=== PATIENT | female | born 1945 | race American Indian/Alaskan Native ===

== ENCOUNTER → 2017-11-17 | Outpatient (CLI) | payer MEDICARE ==
[~2017-11-17] MED LIST: ALBIPROI; ALBU90OI; ALBU90OI INH; AMLODIPINE BES PO; ASPI81EC; ATOR10; ATOR40TA; ATOR40TA PO; BENA PO; BUPR150ER; Bisoprolol Fuma10 MG PO; Budeprion Xl300 MG; CALC.25 PO; CARV3.125; CODACE30 PO; CONEST.625; CONEST.9 PO; CONEST1.25; CVS OMEGA-3 KR1 EACH PO; CYCL10; Cinnamon500 MG; DHEA PO; FOLI1; FOLI400 PO; FURO40; FURO40 PO; FURO80; GLIM2; HYDMOR2 PO; INSLI100I; LEVO-T25 MCG PO; MAGOXI400; METO25ER; METO50ER; NAPR250; POTA8 PO; PRED20 PO; PREDNISONE; PROAIR RESPICL90 MCG IH; SELENIUM200 MCG PO; SITA50T2 PO; SPIR25; SULTRIDS PO; Senna Laxative8.6 MG PO; TOLT4 PO; TRAM50; TRAM50 PO; VIT C; Verotin-Gr Cap1 EACH PO; Vitamin C500 M3 PO; [UNRECOGNIZED DRUG - OTHER]
== END | disposition home or self-care (01) ==
LOC: LAB SHORT 16:05 → LAB EV 16:05
DX: G89.4 Chronic pain syndrome (principal); Z79.899 Other long term (current) drug therapy
CPT/HCPCS: G0480

== ENCOUNTER → 2018-05-30 | Outpatient (CLI) | payer MEDICARE ==
[~2018-05-30] MED LIST changes: -AMLODIPINE BES PO; -ATOR40TA PO; -BENA PO; -Bisoprolol Fuma10 MG PO; -Budeprion Xl300 MG; -CALC.25 PO; -CONEST.9 PO; -CVS OMEGA-3 KR1 EACH PO; -Cinnamon500 MG; -DHEA PO; -FOLI400 PO; -LEVO-T25 MCG PO; -PROAIR RESPICL90 MCG IH; -SELENIUM200 MCG PO; -SITA50T2 PO; -Senna Laxative8.6 MG PO; -TOLT4 PO; -TRAM50 PO; -Verotin-Gr Cap1 EACH PO; -Vitamin C500 M3 PO; -[UNRECOGNIZED DRUG - OTHER]
[2018-06-02 08:38] LABS: Stool Occult Bld Immuno 1 Negative (NEGATIVE)
== END ==
LOC: LAB 11:00 → LAB SHORT 11:00
PROVIDERS: Nurse Practitioner Acute Care
DX: I48.91 Unspecified atrial fibrillation (principal); R19.5 Other fecal abnormalities
CPT/HCPCS: 82274

== ENCOUNTER → 2021-06-08 | Outpatient (CLI) | payer MEDICARE ==
[~2021-06-08] MED LIST changes: +ALBU90OI61 INH; +AMLODIPINE BES PO; +ATOR40TA PO; +Azor 10-20 MG1 EACH PO; +BENA PO; +Bisoprolol Fuma10 MG PO; +Budeprion Xl300 MG; +CALC.25 PO; +CHOL10002 PO; +CONEST.9 PO; +CVS OMEGA-3 KR1 EACH PO; +Cinnamon500 MG; +DHEA PO; +ELIQUIS5 MG PO; +FOLI400 PO; +LEVO-T25 MCG PO; +PROAIR RESPICL90 MCG IH; +SELENIUM200 MCG PO; +SITA50T2 PO; +Senna Laxative8.6 MG PO; +TOLT4 PO; +TRAM50 PO; +Verotin-Gr Cap1 EACH PO; +Vitamin C500 M3 PO; +[UNRECOGNIZED DRUG - OTHER]
[2021-06-08 16:10] LABS: BASOPHILS ABSOLUTE AUTO 0.01 K/mm3 (0.00-0.23); BASOPHILS PERCENT AUTO 0 % (0-2); EOSINOPHILS ABSOLUTE AUTO 0.02 K/mm3 (0.00-0.68); EOSINOPHILS PERCENT AUTO 0 % (0-6); Hematocrit 40.1 % (33.0-51.0); Hemoglobin 12.7 g/dL (11.5-16.0); IMMATURE GRAN ABSOLUTE AUTO 0.08 K/mm3 (0.00-0.10); IMMATURE GRAN PERCENT AUTO 1 % (0-1); LYMPHOCYTES PERCENT AUTO 15 % (21-46); MONOCYTES ABSOLUTE AUTO 0.41 K/mm3 (0.16-1.47); MONOCYTES PERCENT AUTO 5 % (4-13); Mean Corpuscular HGB 27.3 pg (26.0-34.0); Mean Corpuscular HGB Conc 31.7 g/dL (31.5-36.5); Mean Corpuscular Volume 86 fL (80-100); Mean Platelet Volume 11.6 fL (9.1-12.4); NEUTROPHILS ABSOLUTE AUTO 6.23 K/mm3 (1.96-9.15); NEUTROPHILS PERCENT AUTO 78 % (41-73); Platelet Count 274 K/mm3 (150-400); RDW Coefficient Variation 16.1 % (11.7-14.2); RDW Standard Deviation 50.6 fL (35.1-46.3); Red Blood Cell Count 4.65 M/mm3 (3.80-5.20); White Blood Cell Count 7.95 K/mm3 (4.00-11.30)
[2021-06-08 16:27] LABS: Albumin, Blood 2.5 g/dL (3.4-5.0); Albumin/Globulin Ratio 0.5 (0.8-1.8); Bun/Creatinine Ratio 23.8 (12.0-20.0); Calcium, Blood 8.6 mg/dL (8.5-10.1); Creatinine, Blood 1.43 mg/dL (0.40-1.00); Globulin, Blood 5.2 g/dL (2.2-4.0); Potassium, Blood 3.6 mmol/L (3.5-5.5); Thyroid Stimulating Hormone 2.134 uIU/mL (0.360-4.800); Total Protein, Blood 7.7 g/dL (6.4-8.2)
== END | disposition home or self-care (01) ==
LOC: LAB SHORT 16:03
PROVIDERS: Physician Assistant
DX: M62.81 Muscle weakness (generalized) (principal); N39.0 Urinary tract infection, site not specified
CPT/HCPCS: 80053; 84443; 85025; 87077; 87086; 87186

== ENCOUNTER 2024-03-01 20:45 | Emergency (ER) | payer MEDICARE ==
[~2024-03-01] VITALS: Ht 157.5 cm; Wt 90.7 kg
[2024-03-01 21:12] LABS: BASOPHILS ABSOLUTE AUTO 0.06 K/mm3 (0.00-0.23); BASOPHILS PERCENT AUTO 1 % (0-2); EOSINOPHILS ABSOLUTE AUTO 0.18 K/mm3 (0.00-0.68); EOSINOPHILS PERCENT AUTO 1 % (0-6); IMMATURE GRAN ABSOLUTE AUTO 0.13 K/mm3 (0.00-0.10); IMMATURE GRAN PERCENT AUTO 1 % (0-1); LYMPHOCYTES ABSOLUTE AUTO 1.57 K/mm3 (0.84-5.20); LYMPHOCYTES PERCENT AUTO 12 % (21-46); MONOCYTES ABSOLUTE AUTO 0.97 K/mm3 (0.16-1.47); MONOCYTES PERCENT AUTO 7 % (4-13); Mean Corpuscular HGB 29.7 pg (26.0-34.0); Mean Corpuscular HGB Conc 29.4 g/dL (31.5-36.5); Mean Corpuscular Volume 101 fL (80-100); Mean Platelet Volume 12.5 fL (9.1-12.4); NEUTROPHILS ABSOLUTE AUTO 10.21 K/mm3 (1.96-9.15); NEUTROPHILS PERCENT AUTO 78 % (41-73); NRBC ABSOLUTE 0.09 K/mm3 (0.00-0.02); NRBC Auto 0.7 /100 WBC (0.0-0.2); Platelet Count 229 K/mm3 (150-400); RDW Coefficient Variation 17.1 % (11.7-14.2); RDW Standard Deviation 61.3 fL (35.1-46.3); Red Blood Cell Count 1.75 M/mm3 (3.80-5.20); White Blood Cell Count 13.12 K/mm3 (4.00-11.30)
[2024-03-01] MEDS ORDERED: TRELEGY ELLIPT1 EACH IH (21:12)
[2024-03-01] MEDS ORDERED: CATAPRES0.1 MG PO (21:13)
[2024-03-01] MEDS ORDERED: SOAANZ40 M1 PO (21:13)
[2024-03-01 21:14] LABS: Hemoglobin 5.2 g/dL (11.5-16.0)
[2024-03-01] MEDS ORDERED: ATOR40TA PO (21:14)
[2024-03-01] MEDS ORDERED: HYDR100 PO (21:14)
[2024-03-01 21:15] LABS: Hematocrit 17.7 % (33.0-51.0)
[2024-03-01 21:27] LABS: Albumin, Blood 3.1 g/dL (3.4-5.0); Bilirubin, Total 0.4 mg/dL (0.1-1.0); Bun/Creatinine Ratio 37.6 (12.0-20.0); Calcium, Blood 8.9 mg/dL (8.5-10.1); Creatinine, Blood 1.33 mg/dL (0.40-1.00); Globulin, Blood 3.2 g/dL (2.2-4.0); Potassium, Blood 3.9 mmol/L (3.5-5.5); Total Protein, Blood 6.3 g/dL (6.4-8.2)
[2024-03-01] MEDS ORDERED: Pantoprazole Sodium 40 MG Injection IV ONE (21:40)
[2024-03-01 23:12] LABS: International Normalized Ratio 1.17; Prothrombin Time Results 12.4 Sec (9.7-11.5)
[2024-03-01 23:15] VITALS: BP 71/58
[2024-03-01] MEDS ORDERED: NS 1,000 ML IV ONE (23:32)
== END 2024-03-01 23:45 | disposition short-term general hospital (02) ==
LOC: ER 20:45
PROVIDERS: Emergency Medicine
DX: K92.2 Gastrointestinal hemorrhage, unspecified (principal); R57.8 Other shock; D50.0 Iron deficiency anemia secondary to blood loss (chronic); J44.9 Chronic obstructive pulmonary disease, unspecified; Z99.81 Dependence on supplemental oxygen; Z88.5 Allergy status to narcotic agent; Z91.048 Other nonmedicinal substance allergy status; Z79.899 Other long term (current) drug therapy; Z79.890 Hormone replacement therapy; Z79.01 Long term (current) use of anticoagulants; Z95.1 Presence of aortocoronary bypass graft
CPT/HCPCS: 36430; 71045; 80053; 85025; 85610; 85730; 86850; 86900; 86901; 86923; 93005; 93010; 96374; 99285-25; C9113; J7030; P9016

== ENCOUNTER 2024-11-12 17:01 | Inpatient (IN) | payer MEDICARE ==
[~2024-11-12] VITALS: Ht 149.9 cm; Wt 81.2 kg
[~2024-11-12 17:01] MED LIST changes: +CATAPRES0.1 MG PO; +HYDR100 PO; -LEVO-T25 MCG PO; +LEVSOD25 PO; +SOAANZ40 M1 PO; +TRELEGY ELLIPT1 EACH IH
[2024-11-12 17:30] LABS: Source, Urine Straight Cath
[2024-11-12 17:36] LABS: BASOPHILS ABSOLUTE AUTO 0.06 K/mm3 (0.00-0.23); BASOPHILS PERCENT AUTO 0 % (0-2); EOSINOPHILS ABSOLUTE AUTO 0.03 K/mm3 (0.00-0.68); EOSINOPHILS PERCENT AUTO 0 % (0-6); Hematocrit 36.1 % (33.0-51.0); Hemoglobin 11.1 g/dL (11.5-16.0); IMMATURE GRAN ABSOLUTE AUTO 0.19 K/mm3 (0.00-0.10); IMMATURE GRAN PERCENT AUTO 1 % (0-1); LYMPHOCYTES ABSOLUTE AUTO 1.33 K/mm3 (0.84-5.20); LYMPHOCYTES PERCENT AUTO 6 % (21-46); MONOCYTES ABSOLUTE AUTO 1.16 K/mm3 (0.16-1.47); MONOCYTES PERCENT AUTO 5 % (4-13); Mean Corpuscular HGB 24.6 pg (26.0-34.0); Mean Corpuscular HGB Conc 30.7 g/dL (31.5-36.5); Mean Corpuscular Volume 80 fL (80-100); NEUTROPHILS ABSOLUTE AUTO 21.26 K/mm3 (1.96-9.15); NEUTROPHILS PERCENT AUTO 89 % (41-73); Platelet Count 160 K/mm3 (150-400); RDW Coefficient Variation 17.1 % (11.7-14.2); RDW Standard Deviation 48.9 fL (35.1-46.3); Red Blood Cell Count 4.52 M/mm3 (3.80-5.20); White Blood Cell Count 24.03 K/mm3 (4.00-11.30)
[2024-11-12 17:37] LABS: Appearance, Urine Cloudy (Clear); Bilirubin, Urine Neg (Neg); Blood, Urine 5+ (Neg); Color, Urine Yellow (P-Yellow); Glucose Qualitative, Urine Neg (Neg); Ketones, Urine 1+ (Neg); Leukocyte Esterase, Urine 3+ (Neg); Nitrite, Urine Neg (Neg); Protein, Urine 3+ (Neg); Urobilinogen, Urine NORM (Normal)
[2024-11-12] MEDS ORDERED: Albuterol 2.5 MG/3 ML VIAL INH ONE (17:40)
[2024-11-12] MEDS ORDERED: Ketorolac Tromethamine 15mg Vial IV ONE (17:40)
[2024-11-12 17:46] LABS: Albumin, Blood 3.3 g/dL (3.4-5.0); Albumin/Globulin Ratio 0.8 (0.8-1.8); Bilirubin, Total 1.1 mg/dL (0.1-1.0); Bun/Creatinine Ratio 20.6 (12.0-20.0); Calcium, Blood 9.1 mg/dL (8.5-10.1); Creatinine, Blood 1.94 mg/dL (0.40-1.00); Globulin, Blood 4.1 g/dL (2.2-4.0); Potassium, Blood 4.3 mmol/L (3.5-5.5); Total Protein, Blood 7.4 g/dL (6.4-8.2)
[2024-11-12] MEDS ORDERED: NS 1,000 ML IV ONE (18:02)
[2024-11-12] MEDS ORDERED: NS 1,000 ML IV SCH (18:05)
[2024-11-12 18:10] LABS: Influenza A, PCR NEGATIVE (NEGATIVE); Influenza B, PCR NEGATIVE (NEGATIVE); Resp Syncytial Virus, PCR NEGATIVE (NEGATIVE); SARS-Cov-2 (COVID-19) PCR, MMC NEGATIVE (NEGATIVE)
[2024-11-12] MEDS ORDERED: Acetaminophen 325 MG TABLET PO ONE (18:15)
[2024-11-12 18:25] LABS: Bacteria Many /hpf; Mucus Light (0-Heavy); Red Blood Cells, Urine TNTC /hpf (0-2); Squamous Epithelial Cells Few /hpf (Few); Transitional Epithelial Cells Rare /hpf (0-Rare); White Blood Cells, Urine TNTC /hpf (0-5)
[2024-11-12] MEDS ORDERED: Azithromycin 250 MG Tab PO ONE (18:30)
[2024-11-12] MEDS ORDERED: CefTRIAXone Sodium 1,000 MG in NS 100 ML IV ONE (18:30)
[2024-11-12] MEDS ORDERED: Ipratropium/Albuterol SulF 2.5-0.5MG/3 ML Amp INH PRN (19:30)
[2024-11-12] MEDS ORDERED: FLU VACC TS2024-25(6MOS UP)/PF 45 MCG/0.5 ML SYRINGE IM SCH (19:30)
[2024-11-12] MEDS ORDERED: Ondansetron HCl 2 MG / ML 2ML Vial IV PRN (19:30)
[2024-11-12] MEDS ORDERED: MethylPREDNISolone Sod Succ 125 MG Vial IV SCH (20:00)
[2024-11-12] MEDS ORDERED: Heparin Sodium 5000 Units/ML 1ML MDV SC SCH (21:00)
[2024-11-13 06:13] LABS: BASOPHILS ABSOLUTE AUTO 0.07 K/mm3 (0.00-0.23); BASOPHILS PERCENT AUTO 0 % (0-2); EOSINOPHILS PERCENT AUTO 0 % (0-6); Hematocrit 34.4 % (33.0-51.0); Hemoglobin 10.7 g/dL (11.5-16.0); IMMATURE GRAN ABSOLUTE AUTO 0.13 K/mm3 (0.00-0.10); IMMATURE GRAN PERCENT AUTO 1 % (0-1); LYMPHOCYTES ABSOLUTE AUTO 0.56 K/mm3 (0.84-5.20); LYMPHOCYTES PERCENT AUTO 2 % (21-46); MONOCYTES ABSOLUTE AUTO 0.59 K/mm3 (0.16-1.47); MONOCYTES PERCENT AUTO 2 % (4-13); Mean Corpuscular HGB 24.8 pg (26.0-34.0); Mean Corpuscular HGB Conc 31.1 g/dL (31.5-36.5); Mean Corpuscular Volume 80 fL (80-100); Mean Platelet Volume 12.1 fL (9.1-12.4); NEUTROPHILS ABSOLUTE AUTO 23.17 K/mm3 (1.96-9.15); NEUTROPHILS PERCENT AUTO 95 % (41-73); Platelet Count 137 K/mm3 (150-400); RDW Coefficient Variation 16.9 % (11.7-14.2); RDW Standard Deviation 49.1 fL (35.1-46.3); Red Blood Cell Count 4.32 M/mm3 (3.80-5.20); White Blood Cell Count 24.52 K/mm3 (4.00-11.30)
[2024-11-13 06:28] LABS: Albumin, Blood 2.8 g/dL (3.4-5.0); Albumin/Globulin Ratio 0.7 (0.8-1.8); Bilirubin, Total 0.6 mg/dL (0.1-1.0); Bun/Creatinine Ratio 24.6 (12.0-20.0); Calcium, Blood 8.4 mg/dL (8.5-10.1); Creatinine, Blood 1.79 mg/dL (0.40-1.00); Globulin, Blood 4.2 g/dL (2.2-4.0); Potassium, Blood 4.1 mmol/L (3.5-5.5)
[2024-11-13] MEDS ORDERED: Bisoprolol Fuma10 MG PO (11:54)
[2024-11-13] MEDS ORDERED: EUTHYROX25 MC1 PO (11:58)
[2024-11-13 12:15] VITALS: BP 108/83
[2024-11-13] MEDS ORDERED: Acetaminophen 325 MG TABLET PO PRN (13:10)
[2024-11-13 14:52] VITALS: BP 145/64
--- NOTE | 2024-11-13 16:01 | NUR ---
ADMISSION/EOS: PATIENT ARRIVED ON 2-3L VIA OXY MASK SWITCHED TO 2-3L VIA NC DEPENIDNG ON EXERTION LEVEL FOR SPO2 >92%. PATIENT DENIES CHEST PAIN PRESSURE OR SOB. SKIN ABRASION TO THE RIGHT KNEE, PHOTO IN CHART. PATIENT IS MILDLY POOR HISTORIAN, BLOOD PRESSURE IMPROVED FROM ADMISSION. NO ACUTE DISTRESS, HOSPITALIST ROUNDED ON PATIENT ON ARRIVAL IMMEDIATELY MADE MED TELE STATUS, ADDED ACHS CHECKS, PATIENT TOLERATING FOOD AND WATER WITH NO ASSISTANCE. RR <20. AFEBRILE. DENIES CHEST PAIN PRESSURE OR SOB. CONTINUOUS TELE AND SPO2 MONITORING IN PLACE. EDUCATED ON NEED FOR STAFF FOR AMBULATION ALERT AND ORIENTED PLEASANT AND VERY COOPERATIVE AT THIS TIME. CURRENLTY A PACED, 60'S. ORDERS FOR CPAP NOTED. PATIENT WEARS ONE AT HOME TYPICALLY. PATIENT STATES BM X2 DAYS PREVIOUS. PW IN PLACE MINIMAL OUTPUT. FAMILY AT BEDSIDE CURRENLTY. DENIES URGE TO URINATE. NO ACUTE CONCERNS FROM THIS RN AT THIS TIME. PLAN OF CARE CONTINUES.
[2024-11-13] MEDS ORDERED: Trospium Chloride 20 MG Tab PO SCH (16:30)
[2024-11-13] MEDS ORDERED: Insulin Regular 100 UNIT/ML 10ML Vial SC SCH (16:30)
[2024-11-13] MEDS ORDERED: Azithromycin 500 MG in NS 250 ML IV SCH (18:00)
[2024-11-13] MEDS ORDERED: CefTRIAXone Sodium 1,000 MG in NS 100 ML IV SCH (18:00)
[2024-11-13 19:23] VITALS: BP 141/70
[2024-11-13] MEDS ORDERED: Apixaban 5 MG Tab PO SCH (21:00)
[2024-11-13] MEDS ORDERED: Atorvastatin 40 MG Tab PO SCH (21:00)
[2024-11-13 23:54] VITALS: BP 112/74
[2024-11-14 04:21] VITALS: BP 95/82
--- NOTE | 2024-11-14 05:14 | NUR ---
SHIFT SUMMARY PT RESTING COMFORTABLY THROUGHOUT NIGHT. NO ACUTE CHANGES OVERNIGHT. VSS ON BASELINE 2.5L NC SATTING 98%. NO C/O SOB OR CP. NO EDEMA NOTED. ON TELE A-PACED RYTHM 60BPM. PT URINATING VIA WICKING SYSTEM CLOUDY DARK YELLOW URINE. PT REQUESTING TYLENOL @ 0400 FOR HEADACHE. NO FURTHER QUESTIONS OR CONCERNS AT THIS TIME. WILL CONTINUE WITH PLAN OF CARE AND REPORT TO ONCOMING NURSE.
[2024-11-14 05:21] LABS: BASOPHILS ABSOLUTE AUTO 0.05 K/mm3 (0.00-0.23); BASOPHILS PERCENT AUTO 0 % (0-2); EOSINOPHILS ABSOLUTE AUTO 0.01 K/mm3 (0.00-0.68); EOSINOPHILS PERCENT AUTO 0 % (0-6); Hematocrit 36.5 % (33.0-51.0); Hemoglobin 11.2 g/dL (11.5-16.0); IMMATURE GRAN ABSOLUTE AUTO 0.22 K/mm3 (0.00-0.10); IMMATURE GRAN PERCENT AUTO 1 % (0-1); LYMPHOCYTES PERCENT AUTO 3 % (21-46); MONOCYTES ABSOLUTE AUTO 1.54 K/mm3 (0.16-1.47); MONOCYTES PERCENT AUTO 7 % (4-13); Mean Corpuscular HGB 24.3 pg (26.0-34.0); Mean Corpuscular HGB Conc 30.7 g/dL (31.5-36.5); Mean Corpuscular Volume 79 fL (80-100); NEUTROPHILS ABSOLUTE AUTO 20.87 K/mm3 (1.96-9.15); NEUTROPHILS PERCENT AUTO 90 % (41-73); Platelet Count 156 K/mm3 (150-400); RDW Standard Deviation 49.1 fL (35.1-46.3); Red Blood Cell Count 4.61 M/mm3 (3.80-5.20); White Blood Cell Count 23.29 K/mm3 (4.00-11.30)
[2024-11-14] MEDS ORDERED: Levothyroxine Sodium 0.025 MG Tab PO SCH (06:00)
[2024-11-14 06:09] LABS: Albumin, Blood 2.7 g/dL (3.4-5.0); Anion Gap 12 mmol/L (3-11); Blood Urea Nitrogen 56 mg/dL (8-24); CO2, Blood 25 mmol/L (21-32); Calcium, Blood 9.2 mg/dL (8.5-10.1); Chloride, Blood 101 mmol/L (98-108); Glomerular Filtration Rate 32 (60-); Glucose, Blood 188 mg/dL (70-99); Phosphorus, Blood 2.8 mg/dL (2.5-4.9); Potassium, Blood 4.3 mmol/L (3.5-5.5); Sodium, Blood 134 mmol/L (136-145)
[2024-11-14 08:00] VITALS: BP 149/83
--- NOTE | 2024-11-14 08:45 | NUR ---
am note this rn assumed care at 0700 and bedside shift report done with Yulissa Mehta. During bedside shift report patient stated she had a fall at home in her closet prior to coming into the hospital. There is no record of this in the notes while the patient has been here. During MD Gutierrez morning rounds this rn informed Md Gutierrez and orders for imaging placed. Patient is alert and oreinted x4. neuro is intact. perrla. patient is able to make needs known and uses call light appropriately. when this Rn assess patiet head patient reported tenderness to the left front and back right side, this rn did not see any skin issues on her head. Patient denies pain, but states soreness in her neck from her fall at home. Patient denies chest pain/pressure or shortness of breath. Spo2 >90% on 2l nc and lung sounds clear throughout upper lobes and dim in lower lobes. patient uses 2l nc at baseline. Patient has an abrasion on right knee and she states it was from her fall at home. see shift assessment for further detials. plan of care is up to date.
[2024-11-14] MEDS ORDERED: buPROPion HCL 150 MG TAB.SR.12H PO SCH (09:00)
[2024-11-14] MEDS ORDERED: Metoprolol Succinate 50 MG TABCR PO SCH (09:00)
[2024-11-14] MEDS ORDERED: Furosemide 10 MG / ML 2ML Vial IV SCH (09:00)
--- NOTE | 2024-11-14 09:27 | NUR ---
left for imaging patient left for imaging of head.
--- NOTE | 2024-11-14 10:15 | NUR ---
return from imaging patient returned from imaging
[2024-11-14 11:20] VITALS: BP 110/63
[2024-11-14 15:53] VITALS: BP 138/75
--- NOTE | 2024-11-14 17:13 | NUR ---
shift summary patient neuro remains intact. vital signs remain stable. tele a paced 60s. spo2 >90% on 2l nc. patient had bed bath and sat in chair today. patient is a one person assist with walker for safety. no acute changes this shift. see previous notes. plan remains up to date.
[2024-11-14 19:35] VITALS: BP 120/96
[2024-11-14 23:20] VITALS: BP 135/93
[2024-11-15 04:38] VITALS: BP 138/111
--- NOTE | 2024-11-15 04:42 | NUR ---
SHIFT SUMMARY PT REMAINS A&OX4. VSS ON 2L NC WHICH IS BASELINE FOR HER. UTILIZING CPAP HS. NO ACUTE CHANGES OVERNIGHT. NO SOB OR CP NOTED. PT 1-2P ASSIST TO BSC. X1 BM OVERNIGHT. NO FURTHER QUESTIONS OR CONCERNS AT THIS TIME. WILL CONTINUE WITH PLAN OF CARE AND REPORT TO ONCOMING NURSE.
[2024-11-15 05:04] LABS: BASOPHILS ABSOLUTE AUTO 0.06 K/mm3 (0.00-0.23); BASOPHILS PERCENT AUTO 0 % (0-2); EOSINOPHILS PERCENT AUTO 3 % (0-6); Hematocrit 37.9 % (33.0-51.0); Hemoglobin 11.4 g/dL (11.5-16.0); IMMATURE GRAN ABSOLUTE AUTO 0.15 K/mm3 (0.00-0.10); IMMATURE GRAN PERCENT AUTO 1 % (0-1); LYMPHOCYTES ABSOLUTE AUTO 0.68 K/mm3 (0.84-5.20); LYMPHOCYTES PERCENT AUTO 5 % (21-46); MONOCYTES ABSOLUTE AUTO 0.99 K/mm3 (0.16-1.47); MONOCYTES PERCENT AUTO 7 % (4-13); Mean Corpuscular HGB 24.4 pg (26.0-34.0); Mean Corpuscular HGB Conc 30.1 g/dL (31.5-36.5); Mean Corpuscular Volume 81 fL (80-100); Mean Platelet Volume 13.3 fL (9.1-12.4); NEUTROPHILS ABSOLUTE AUTO 12.16 K/mm3 (1.96-9.15); NEUTROPHILS PERCENT AUTO 84 % (41-73); NRBC ABSOLUTE 0.03 K/mm3 (0.00-0.02); NRBC Auto 0.2 /100 WBC (0.0-0.2); Platelet Count 166 K/mm3 (150-400); RDW Coefficient Variation 17.1 % (11.7-14.2); RDW Standard Deviation 50.4 fL (35.1-46.3); Red Blood Cell Count 4.68 M/mm3 (3.80-5.20); White Blood Cell Count 14.54 K/mm3 (4.00-11.30)
[2024-11-15 05:16] LABS: Albumin, Blood 2.6 g/dL (3.4-5.0); Albumin/Globulin Ratio 0.6 (0.8-1.8); Bilirubin, Total 0.3 mg/dL (0.1-1.0); Calcium, Blood 8.9 mg/dL (8.5-10.1); Creatinine, Blood 1.35 mg/dL (0.40-1.00); Globulin, Blood 4.2 g/dL (2.2-4.0); Potassium, Blood 4.6 mmol/L (3.5-5.5); Total Protein, Blood 6.8 g/dL (6.4-8.2)
[2024-11-15 08:00] VITALS: BP 149/88
--- NOTE | 2024-11-15 10:40 | NUR ---
ASSUMPTION OF CARE: PATIENT IS ALERT AND ORIENTED X 4 ABLE TO MAKE NEEDS KNOWN, PLEASANT COOPERATIVE, IS A MILDLY POOR HISTORIAN. NIGHT RN REPORTED THAT DAUGHTER AND PATIENT ARE TRYING TO GET POA FOR THE DAUGHTER. DENIES CHEST PAIN PRESSURE OR SOB. COUGH DENIES ANYTHING BUT CLEAR SPUTUM. GETTING DIURETICS AND ABX SEE XR AND . NOTE. PATIENT IS APACED AT 61 BP STABLE. NO ACUTE CONCERNS FROM THIS RN. WICKING SYSTEM IN PLACE FOR DIURESING AND MILD URGENCY/INCONTINENCE. BOWEL WNL FOR PATIENT, MILD STOMACH DISTRESS FROM ABX. SCD'S AT THE BEDSIDE ROTATING OFF AND ON SHE IS UP TO THE CHAIR FOR MEALS. NO ACUTE CONCERNS FROM THIS RN NOTED AT THIS TIME.
[2024-11-15 11:01] VITALS: BP 154/46
[2024-11-15 15:31] VITALS: BP 154/86
--- NOTE | 2024-11-15 16:36 | NUR ---
EOS: NO SIGNIFICANT CHANGES FROM ASSUMPTION TOLERATING 1P SBA WITH FWW. 2.5 WITH EXERTION, 2L AT REST. PATIENT DENIES CHEST PAIN PRESSURE OR SOB. PATIENT IS BED TELE. SPOKE WITH PROVIDER HE IS TO STOP DIURETICS. PATIENT DIURESING WELL. BLOOD PRESSURE HAS BEEN STABLE FOR THIS RN. NO ACUTE CONCERNS THROUGH THE DAY FROM SUSAN OR THIS RN. PLAN OF CARE CONTINUES.
[2024-11-15 20:23] VITALS: BP 118/72
[2024-11-15] MEDS ORDERED: Lactobacil 2-S.Thermo-Bifido 1 1 Cap PO SCH (21:00)
[2024-11-15 23:50] VITALS: BP 132/88
[2024-11-16 04:01] VITALS: BP 94/78
[2024-11-16 04:08] LABS: BASOPHILS ABSOLUTE AUTO 0.07 K/mm3 (0.00-0.23); BASOPHILS PERCENT AUTO 1 % (0-2); EOSINOPHILS ABSOLUTE AUTO 0.52 K/mm3 (0.00-0.68); EOSINOPHILS PERCENT AUTO 4 % (0-6); Hematocrit 38.7 % (33.0-51.0); Hemoglobin 11.7 g/dL (11.5-16.0); IMMATURE GRAN ABSOLUTE AUTO 0.22 K/mm3 (0.00-0.10); IMMATURE GRAN PERCENT AUTO 2 % (0-1); LYMPHOCYTES ABSOLUTE AUTO 1.12 K/mm3 (0.84-5.20); LYMPHOCYTES PERCENT AUTO 10 % (21-46); MONOCYTES PERCENT AUTO 9 % (4-13); Mean Corpuscular HGB 24.2 pg (26.0-34.0); Mean Corpuscular HGB Conc 30.2 g/dL (31.5-36.5); Mean Corpuscular Volume 80 fL (80-100); NEUTROPHILS ABSOLUTE AUTO 8.69 K/mm3 (1.96-9.15); NEUTROPHILS PERCENT AUTO 74 % (41-73); Platelet Count 170 K/mm3 (150-400); RDW Coefficient Variation 16.9 % (11.7-14.2); RDW Standard Deviation 49.1 fL (35.1-46.3); Red Blood Cell Count 4.83 M/mm3 (3.80-5.20); White Blood Cell Count 11.72 K/mm3 (4.00-11.30)
[2024-11-16 04:12] LABS: Mean Platelet Volume 11.8 fL (9.1-12.4)
[2024-11-16 04:28] LABS: Bun/Creatinine Ratio 31.6 (12.0-20.0); Calcium, Blood 9.1 mg/dL (8.5-10.1); Creatinine, Blood 1.14 mg/dL (0.40-1.00); Potassium, Blood 5.1 mmol/L (3.5-5.5)
[2024-11-16 04:35] VITALS: BP 157/94
--- NOTE | 2024-11-16 04:48 | NUR ---
Shift summary: Alert, forgetful, A&OX3 Bed alarm on for safety. On 3LNC which is baseline. Awake most of shift short sleep intervals. Did wear C-Pap part of the night. Using BSC, wicking device on along with a brief. brief is on. No reports of H?A Tele Paced Rhythm Continue Care. Plan to dsicharge to home.
--- NOTE | 2024-11-16 06:33 | NUR ---
TRANSFER NOTE: REPORT GIVEN TO HUA HO ON MEDICAL FLOOR. PATIENT BEING TRANSFERRRED TO ROOM 352. ALL PERSONAL BELONGINGS AND HOME MEDICATIONS TRANSFERRED WITH PATIENT. ASKED PATIENT IF SHE WOULD LIKE US TO CALL HER DAUGHTER REGARDING HER MOVE TO THIRD FLOOR. PATIENT DECLINED.
[2024-11-16 06:40] VITALS: BP 138/101
--- NOTE | 2024-11-16 06:41 | NUR ---
TRANSFER SUMMARY: PT AOX4 WITH SOME CONFUSION AND FORGETFULNESS. PT TRANSFERRED FROM PCU-12. AMBULATED FROM WHEELCHAIR TO BED WITH 1PA. PT ARRIVED AT 0631. PT ON 2L OF O2 SATTING WELL VITAL SIGNS STABLE. PT ORIENTED TO THE ROOM. PT RESTING IN BED, BED IN LOWEST POSITION, CALL LIGHT IN REACH, CONTINUING CARE.
[2024-11-16 07:27] VITALS: BP 177/92
--- NOTE | 2024-11-16 17:05 | NUR ---
NO ACUTE CHANGES THIS SHIFT. PT REPORTS NOT FEELING WELL. 2L NC, THIS IS HER BASELINE. INTERMITTENT COUGH. SBA WITH FWW TO BEDSIDE COMMODE, PT NEEDS ENCOURAGEMENT TO GET UP AND AROUND. ALERT AND ORIENTED X4, ABLE TO MAKE NEEDS KNOWN.
[2024-11-16 17:07] VITALS: BP 147/69
[2024-11-16] MEDS ORDERED: NS 250 ML IV PRN (17:25)
[2024-11-16 19:49] VITALS: BP 165/106
[2024-11-16] MEDS ORDERED: HydrALAZINE HCl 25 MG Tab PO PRN (19:55)
[2024-11-17 00:32] VITALS: BP 147/87
[2024-11-17 04:35] VITALS: BP 139/94
[2024-11-17 05:29] LABS: BASOPHILS ABSOLUTE AUTO 0.09 K/mm3 (0.00-0.23); BASOPHILS PERCENT AUTO 1 % (0-2); EOSINOPHILS ABSOLUTE AUTO 0.65 K/mm3 (0.00-0.68); EOSINOPHILS PERCENT AUTO 5 % (0-6); Hematocrit 40.4 % (33.0-51.0); Hemoglobin 12.2 g/dL (11.5-16.0); IMMATURE GRAN ABSOLUTE AUTO 0.44 K/mm3 (0.00-0.10); IMMATURE GRAN PERCENT AUTO 4 % (0-1); LYMPHOCYTES ABSOLUTE AUTO 1.42 K/mm3 (0.84-5.20); LYMPHOCYTES PERCENT AUTO 11 % (21-46); MONOCYTES ABSOLUTE AUTO 0.91 K/mm3 (0.16-1.47); MONOCYTES PERCENT AUTO 7 % (4-13); Mean Corpuscular HGB 24.3 pg (26.0-34.0); Mean Corpuscular HGB Conc 30.2 g/dL (31.5-36.5); Mean Corpuscular Volume 81 fL (80-100); NEUTROPHILS ABSOLUTE AUTO 9.13 K/mm3 (1.96-9.15); NEUTROPHILS PERCENT AUTO 72 % (41-73); Platelet Count 190 K/mm3 (150-400); RDW Coefficient Variation 17.2 % (11.7-14.2); RDW Standard Deviation 49.2 fL (35.1-46.3); Red Blood Cell Count 5.02 M/mm3 (3.80-5.20); White Blood Cell Count 12.64 K/mm3 (4.00-11.30)
[2024-11-17 05:31] LABS: Mean Platelet Volume 12.6 fL (9.1-12.4)
[2024-11-17 05:45] LABS: Bun/Creatinine Ratio 22.7 (12.0-20.0); Calcium, Blood 9.2 mg/dL (8.5-10.1); Creatinine, Blood 1.19 mg/dL (0.40-1.00)
[2024-11-17 07:01] VITALS: BP 153/79
--- NOTE | 2024-11-17 07:23 | NUR ---
SHIFT SUMMARY AT START OF SHIFT, PT S DAUGHTER AT BEDSIDE. PT IS PLEASANTLY CONFUSED, BUT IS A&O X4. PT PULLED HER TELE LEADS AND PULSE OX OFF BECAUSE IT WAS MAKING NOISE . EDUCATED PT ON NEED FOR TELE AND PULSE OX. PT EXPRESSED UNDERSTANDING. PT HAS BEEN PLEASANT AND COOPERATIVE WITH HER CARE.
[2024-11-17] MEDS ORDERED: VISBIOME 112.51 EACH PO (08:47)
[2024-11-17] MEDS ORDERED: CEFP200 PO (08:47)
[2024-11-17] MEDS ORDERED: ONDA4ODT MM (08:48)
[2024-11-17 11:35] VITALS: BP 104/79
== END 2024-11-17 15:25 | disposition home or self-care (01) | DRG 871 ==
LOC: ER 17:01 → ERHOLD 18:58 → PCU 11-13 12:04 → MEDS 11-16 06:31 → ENPENDDIS 11-17 13:02 → MEDS 11-17 15:25
PROVIDERS: Family Medicine; Internal Medicine; Student in an Organized Health Care Education/Training Program; ADMIT Internal Medicine
DX: A41.9 Sepsis, unspecified organism (principal); I50.33 Acute on chronic diastolic (congestive) heart failure; J18.9 Pneumonia, unspecified organism; J96.21 Acute and chronic respiratory failure with hypoxia; J44.0 Chronic obstructive pulmonary disease with (acute) lower respiratory infection; I13.0 Hypertensive heart and chronic kidney disease with heart failure and stage 1 through stage 4 chronic kidney disease, or unspecified chronic kidney disease; N17.9 Acute kidney failure, unspecified; E87.1 Hypo-osmolality and hyponatremia; N30.00 Acute cystitis without hematuria; R65.20 Severe sepsis without septic shock; N18.30 Chronic kidney disease, stage 3 unspecified; E11.22 Type 2 diabetes mellitus with diabetic chronic kidney disease; I48.91 Unspecified atrial fibrillation; E03.9 Hypothyroidism, unspecified; D69.6 Thrombocytopenia, unspecified; D63.1 Anemia in chronic kidney disease; E11.40 Type 2 diabetes mellitus with diabetic neuropathy, unspecified; M81.0 Age-related osteoporosis without current pathological fracture; Z79.899 Other long term (current) drug therapy; F17.210 Nicotine dependence, cigarettes, uncomplicated; G47.33 Obstructive sleep apnea (adult) (pediatric); E78.5 Hyperlipidemia, unspecified; Z95.0 Presence of cardiac pacemaker; H26.9 Unspecified cataract; Z96.653 Presence of artificial knee joint, bilateral; Z90.49 Acquired absence of other specified parts of digestive tract; Z90.710 Acquired absence of both cervix and uterus; Z98.890 Other specified postprocedural states; Z79.01 Long term (current) use of anticoagulants; Z88.5 Allergy status to narcotic agent; Z88.8 Allergy status to other drugs, medicaments and biological substances; Z91.048 Other nonmedicinal substance allergy status; Z79.890 Hormone replacement therapy
CPT/HCPCS: 0241U; 36415; 70450; 71045; 80048; 80053; 80069; 81001; 82947; 83880; 84145; 84484; 85025; 87040; 87077; 87086; 87186; 93005; 93010; 93306; 94640; 94660; 94664; 94760; 94762; 96374-59; 97116; 97161; 99285-25; A9270; J0456; J0696; J1644; J1815; J1885; J1940; J2919; J7030; J7050